=== PATIENT | male | born 1945 | race Caucasian/White ===

== ENCOUNTER → 2018-10-29 | Outpatient (CLI) | payer MEDICARE, OTHER ==
--- NOTE | 2018-10-29 11:27 | Diagnostic Imaging Report ---
Indication: Fall with tailbone pain Time of exam 11:01 AM The sacral arcuate lines appear to be intact. Sacrococcygeal alignment is normal. No definite fracture is identified. SI joints and symphysis are unremarkable. Impression: No acute bony abnormality is detected. Dictated by: Dictated on workstation # [id number]
== END ==
LOC: RAD 10:41
PROVIDERS: ATTEND Pediatrics
DX: M53.3 Sacrococcygeal disorders, not elsewhere classified (principal)
CPT/HCPCS: 72220